=== PATIENT | female | born 1970 | race American Indian/Alaskan Native ===

== ENCOUNTER 2017-12-28 11:10 | Day surgery (SDC) | payer BC ==
[2017-12-10 13:41] VITALS: BMI 27.2
[2017-12-28 11:55] LABS: BASO # 0.01 K/mm3 (0.0-2.0); BASO % 0.2 % (0.0-3.0); EOS # 0.1 (0.0-0.7); EOS % 1.1 % (1.5-5.0); GRAN # 3.26 (1.4-6.5); GRAN % 50.9 % (50.0-68.0); HEMOGLOBIN 11.2 g/dL (12.0-16.0); LYMPH # 2.6 (1.2-3.4); LYMPH % 40.4 % (22.0-35.0); MEAN CELL VOLUME 84.2 fl (80.0-105.0); MEAN CORPUSCULAR HEMOGLOBIN 27.2 pg (25.0-35.0); MEAN CORPUSCULAR HGB CONC 32.3 g/dl (31.0-37.0); MEAN PLATELET VOLUME 10.6 fl (7.0-11.0); MONO # 0.5 (0.1-0.6); MONO % 7.4 % (1.0-6.0); RBC 4.12 10^6/uL (3.5-6.1); RED CELL DISTRIBUTION WIDTH 18.1 % (11.5-14.5); WHITE BLOOD COUNT 6.4 10^3/ul (4.5-11.0)
[2017-12-28 12:06] LABS: BLOOD UREA NITROGEN 10 mg/dL (7-21); CALCIUM 9.8 mg/dL (8.4-10.5); GFR AFRICAN-AMERICAN > 60; GFR NON-AFRICAN AMERICAN > 60
[2017-12-28 12:17] LABS: INR 1.04 (0.93-1.08); PARTIAL THROMBOPLASTIN TIME 29.5 Seconds (25.1-36.5)
[2017-12-28] MEDS ORDERED: Midazolam 2 MG/2 ML VIAL ONE (13:05)
[2017-12-28] MEDS ORDERED: Lidocaine 1% Inj (20ml) ONE (14:15)
[2017-12-28] MEDS ORDERED: Oxycodone/Acetaminophen 5/325 mg Tab PO PRN (15:03)
[2017-12-28] MEDS ORDERED: Sodium Chloride 0.45% 1,000 ML IV SCH (15:15)
[2017-12-28 15:36] VITALS: RESP 18
[2017-12-28 16:13] VITALS: TEMP 98.2
[2017-12-28 16:48] VITALS: BP 129/88; PULSE 70; O2SAT 100
--- NOTE | 2017-12-28 18:48 | US ---
PROCEDURE: Ultrasound-guided left thyroid fine needle aspiration biopsy. CLINICAL HISTORY: Multiple small bilateral thyroid nodules and cysts. Dominant complex 1.9 cm left thyroid nodule Evaluate for malignancy. PHYSICIAN(S): Bhargav Spangler M.D. TECHNIQUE: The relative risks and indications for the procedure were explained to the patient and consent obtained. The patient was placed supine on the stretcher with the neck extended and preliminary sonography of the thyroid performed. This revealed multiple small bilateral nodules and cysts. A complex 1.9 cm cystic nodule is noted in the left thyroid. The neck was prepped and draped in the usual sterile fashion. Conscious sedation and monitoring were provided throughout the procedure by a nurse. 1% Xylocaine was used to anesthetize the skin and soft tissues at the access site. Three passes with a 22-gauge needle were performed under ultrasound guidance for fine needle aspiration of the 1.9 cm complex cystic nodule in the left thyroid. The slides were reviewed by pathology and deemed adequate. The patient tolerated the procedure well. IMPRESSION: 1. Ultrasound guided fine needle aspiration of a 0.9 cm complex cysticnodule in the left thyroid.
== END 2017-12-28 16:42 | disposition home or self-care (01) ==
LOC: SDS 11:10
PROVIDERS: ATTEND Radiology Vascular & Interventional Radiology
DX: E04.1 Nontoxic single thyroid nodule (principal)
CPT/HCPCS: 10022; 36415; 76942; 80048; 85025; 85610; 85730; 88173; 88305; 99152; J2250; J2405; J3010; J7030